=== PATIENT | female | born 1960 | race Caucasian/White ===

== ENCOUNTER 2019-06-01 13:25 | Emergency (ER) | payer OTHER ==
[2019-06-01 13:30] VITALS: BP 145/69; PULSE 96; TEMP 98; BMI 34.2
--- NOTE | 2019-06-01 13:32 | PDOC ---
Rapid Medical Evaluation Chief Complaint: Pain, Acute Time Seen by Provider: 06/01/19 13:28 Medical Evaluation: 06/01/19 13:28 I have performed a brief in-person evaluation of this patient. The patient presents with a chief complaint of: pain to left side of face x 1 month around jaw line. Pt has not taken anything for the pain. report increased pain when she opens her mouth. pt also complains of low back pain which has been chronic for 3 years Pertinent physical exam findings: moderate TTP over left TMJ I have ordered the following: nothing The patient will proceed to the ED for further evaluation. Discharge Disposition - Diagnosis Arthralgia of left temporomandibular joint - Discharge Dispostion Condition at time of disposition: Stable - Referrals - Patient Instructions - Post Discharge Activity
--- NOTE | 2019-06-01 14:47 | PDOC ---
History of Present Illness - General Chief Complaint: Pain, Acute Stated Complaint: PAIN Time Seen by Provider: 06/01/19 13:28 - History of Present Illness Initial Comments: 06/01/19 14:47 CHIEF COMPLAINT: L jaw pain HISTORY OF PRESENT ILLNESS: 59 yo F presents to [facility] with pain to L jaw and low back pain x 3 years. Patient reports the pain to her jaw is elicited when she is eating or chewing. Denies any fever, chills, SOB, chest pain. Patient reports that she has had the back pain for 3 years and had a negative CT but has not continued following with an orthopedist because she did not think the doctor was very good. Patient denies any loss of bowel or bladder function, denies any loss of sensation to her legs, and reports that she has been fully ambulatory. No recent travel or sick contacts. PAST MEDICAL HISTORY: Denies past medical history FAMILY HISTORY: Denies SOCIAL HISTORY: Denies tobacco, alcohol, illicit drug use. SURGICAL HISTORY: Denies ALLERGIES: No known drug allergies REVIEW OF SYSTEMS General/Constitutional: Denies fever or chills. Denies weakness, weight change. HEENT: Pain to L jaw when eating. Denies change in vision. Denies ear pain or discharge. Denies sore throat. Cardiovascular: Denies chest pain or shortness of breath. Respiratory: Denies cough, wheezing, or hemoptysis. Gastrointestinal: Denies nausea, vomiting, diarrhea or constipation. Denies rectal bleeding. Genitourinary: Denies dysuria, frequency, or change in urination. Musculoskeletal: Denies joint or muscle swelling or pain. Denies neck or back pain. Skin and breasts: Denies rash or easy bruising. Neurologic: Denies headache, vertigo, loss of consciousness, or loss of sensation. Psychiatric: Denies depression or anxiety. PHYSICAL EXAM General Appearance: Well-appearing, appropriately dressed. No apparent distress , no intoxication. HEENT: Moderate TTP over left TMJ, no trismus. EOMI, PERRLA, normal ENT inspection, normal voice, TMs normal, pharynx normal. No conjunctival pallor. No photophobia, scleral icterus. Neck: Supple. Trachea midline. No tenderness, rigidity, carotid bruit, stridor , lymphadenopathy, or thyromegaly. Respiratory/Chest: Lungs CTAB. No shortness of breath, chest tenderness, respiratory distress, accessory muscle use. No crackles, rales, rhonchi, stridor , wheezing, dullness Cardiovascular: RRR. S1, S2. No JVD, murmur, bradycardia, tachycardia. Vascular Pulses: Dorsalis-Pedis (R): 2+, Dorsalis-Pedis (L): 2+ Gastrointestinal/Abdominal: Normal bowel sounds. Abdomen soft, non-distended. No tenderness or rebound tenderness. No organomegaly, pulsatile mass, guarding , hernia, hepatomegaly, splenomegaly. Lymphatic: No adenopathy, tenderness. Musculoskeletal/Extremities: Normal inspection. FROM of all extremities, normal capillary refill. Pelvis Stable. No CVA tenderness. No tenderness to extremities, pedal edema, swelling, erythema or deformity. Integumentary: Appropriate color, dry, warm. No cyanosis, erythema, jaundice or rash Neurologic: mold checker II-XII intact. Fully oriented, alert. Appropriate mood/affect. Motor strength 5/5. No appreciable EOM palsy, facial droop or sensory deficit. 06/01/19 14:57 Past History - Past Medical History Allergies/Adverse Reactions: Allergies Allergy/AdvReac Type Severity Reaction Status Date / Time No Known Allergies Allergy Verified 06/01/19 13:30 Home Medications: Ambulatory Orders Cyclobenzaprine HCl 5 mg PO HS #10 tablet 06/01/19 Naproxen Sodium [All Day Pain Relief] 220 mg PO BID #20 tablet 06/01/19 COPD: No Diabetes: Yes HTN: Yes Hypercholesterolemia: Yes - Psycho Social/Smoking Cessation Hx Smoking History: Never smoked *Physical Exam - Vital Signs Last Vital Signs Temp Pulse Resp BP Pulse Ox 98 F 96 H 18 145/69 99 06/01/19 13:26 06/01/19 13:26 06/01/19 13:26 06/01/19 13:26 06/01/19 13:26 Medical Decision Making - Medical Decision Making 06/01/19 15:03 59 yo F presents to [facility] with pain to L jaw and low back pain x 3 years. -toradol f/u with [facility] and ortho. Advised patient to take medication as prescribed and follow up with [facility] and orthopedics within the next week. Advised patient of signs and symptoms for return to ED. Patient verbalized understanding and agrees to plan. Discharge - Discharge Information Problems reviewed: Yes Clinical Impression/Diagnosis: Temporomandibular joint (TMJ) pain Qualifiers: Laterality: left Qualified Code(s): M26.622 - Arthralgia of left temporomandibular joint Chronic low back pain Qualifiers: Back pain laterality: left Sciatica presence: without sciatica Qualified Code(s ): M54.5 - Low back pain; G89.29 - Other chronic pain Condition: Stable - Admission No - Additional Discharge Information Prescriptions: Cyclobenzaprine HCl 5 mg PO HS #10 tablet Naproxen Sodium [All Day Pain Relief] 220 mg PO BID #20 tablet - Follow up/Referral Referrals: Alf Larson MD [Primary Care Provider] - Bora Silver MD [Non Staff, Medical] - Gianni Salazar [Staff Physician] - Danny Mansfield MD [Non Staff, Medical] - Lakhwinder Chung MD [Staff Physician] - Danny Curry MD [Staff Physician] - - Patient Discharge Instructions Patient Printed Discharge Instructions: DI for Low Back Pain, DI for Temporomandibular Disorder - Post Discharge Activity
[2019-06-01] MEDS ORDERED: KETOROLAC TROMETHAMINE 30 MG/1 ML VIAL IM ONE (15:03)
[2019-06-01] MEDS ORDERED: KETOROLAC TROMETHAMINE 30 MG/1 ML VIAL ONE (15:14)
== END 2019-06-01 15:20 | disposition home or self-care (01) ==
LOC: JERFT 13:25
PROC: 3E0233Z Introduction of Anti-inflammatory into Muscle, Percutaneous Approach (ICD-10-PCS; principal; 2019-06-01)
DX: M26.622 Arthralgia of left temporomandibular joint (principal); M54.5 Low back pain; G89.29 Other chronic pain
CPT/HCPCS: 99281-25

== ENCOUNTER 2022-01-22 09:53 | Emergency (ER) | payer OTHER ==
[2022-01-22 10:05] VITALS: BP 139/71; PULSE 90; RESP 18; TEMP 98.5; BMI 35.6
[2022-01-22] MEDS ORDERED: ACETAMINOPHEN 325 MG TABLET (FP) PO ONE (10:45)
[2022-01-22] MEDS ORDERED: DIPHTH,PERTUSS(ACELL),TET 0.5 ML DISP.SYRIN IM ONE ×2 (10:45→11:13)
[2022-01-22] MEDS ORDERED: ACETAMINOPHEN 325 MG TABLET (FP) ONE (11:13)
== END 2022-01-22 12:45 | disposition home or self-care (01) ==
LOC: JER 09:53
PROC: 3E0234Z Introduction of Serum, Toxoid and Vaccine into Muscle, Percutaneous Approach (ICD-10-PCS; principal; 2022-01-22)
DX: S09.90XA Unspecified injury of head, initial encounter (principal); S00.93XA Contusion of unspecified part of head, initial encounter; S40.012A Contusion of left shoulder, initial encounter; Y04.0XXA Assault by unarmed brawl or fight, initial encounter
CPT/HCPCS: 70450-TC; 72125-TC; 90471; 90715; 99284-25

== ENCOUNTER 2024-04-05 17:35 | Emergency (ER) | payer OTHER ==
[2024-04-05 17:40] VITALS: BP 162/93; PULSE 80; RESP 18; TEMP 98.6; BMI 35.9
== END 2024-04-05 21:37 | disposition home or self-care (01) ==
LOC: JERFT 17:35
DX: S16.1XXA Strain of muscle, fascia and tendon at neck level, initial encounter (principal); S00.03XA Contusion of scalp, initial encounter; W01.0XXA Fall on same level from slipping, tripping and stumbling without subsequent striking against object, initial encounter
CPT/HCPCS: 70450-TC; 72125-TC; 99284-25